=== PATIENT | female | born 1940 | race Caucasian/White ===

== ENCOUNTER → 2018-07-26 16:34 | Outpatient (CLI) | payer MEDICARE, SELFPAY ==
--- NOTE | 2018-07-26 | NVE_ITS ---
Venous Exam Indications: 729.5 Pain in limb. IMPRESSIONS 1. There is no evidence of significant Reflux. 2. No evidence of deep or superficial vein thrombosis involving the left lower extremity History: Left lower extremity pain. Swelling of the left lower extremity. Risk factors: Hypertension. Patient denies trauma. States her ankle and foot began swelling a few weeks ago. It seems to have gotten worse over time and is spreading up the leg. Left lower extremity venous duplex evaluation. Doppler flow study including spectral analysis, color and garner scale imaging. Location: Vascular laboratory. Patient status: Outpatient. Incidental findings: A Burnett's cyst is noted incidentally on the left. Tables: Venous flow and imaging: + +-------+ + Location Overall Flow properties + +-------+ + Left common femoral Patent Normal phasicity; spontaneous; normal augmentation; compressible + +-------+ + Left saphenofemoral junction Patent Compressible + +-------+ + Left profunda femoral Patent Compressible + +-------+ + Left femoral Patent Normal phasicity; spontaneous; normal augmentation; compressible + +-------+ + Left greater saphenous Patent Normal phasicity; spontaneous; normal augmentation; compressible + +-------+ + Left popliteal Patent Normal phasicity; spontaneous; normal augmentation; compressible + +-------+ + Left posterior tibial Patent Compressible + +-------+ + Left peroneal Patent Compressible + +-------+ + Left gastrocnemius Patent Compressible + +-------+ + Left soleal Patent Compressible + +-------+ + (Report amended ) Electronically signed by: Ha Hendrickson [id number]
== END ==
PROVIDERS: PCP Family Medicine; Visit Provider Family Medicine
DX: M79.605 Pain in left leg (principal)
CPT/HCPCS: 93971

== ENCOUNTER → 2018-08-17 12:51 | Outpatient (CLI) | payer MEDICARE, SELFPAY ==
--- NOTE | 2018-08-17 12:57 | XR_ITS ---
XR ankle LT min 3V HISTORY: Lateral ankle pain with swelling ITS.REASON: SWELLING OF LT FOOT ORDERING PHYSICIAN: Jensen Orellana MD PATIENT AGE: 78 years FINDINGS: No acute fracture or dislocation. No lytic or blastic change. There is mild soft tissue swelling along both medial and lateral aspect of the ankle greater along the lateral aspect. A small separate calcific density is present at the tip of the medial malleolus consistent with an old avulsion fracture. Prominent calcification is present along the plantar aponeurosis near the calcaneus and calcaneal spur and may reflect chronic plantar fasciitis. IMPRESSION: 1. Soft tissue swelling at the lateral malleolus region. 2. Old avulsion fracture of the medial malleolus. 3. Coarse calcification of the plantar aponeurosis posteriorly which may be seen with plantar fasciitis
--- NOTE | 2018-08-17 12:57 | XR_ITS ---
XR foot LT min 3V HISTORY: ITS.REASON: SWELLING OF LT FOOT ORDERING PHYSICIAN: Jensen Orellana MD PATIENT AGE: 78 years COMPARISON: None FINDINGS: There is moderate hallux valgus with osteoarthritis of the first metatarsophalangeal junction with bunion formation at the distal aspect of the first metatarsal. No fracture or dislocation. No lytic or blastic change. There are mild osteoarthritic changes of the tarsometatarsal junction dorsally. Coarse calcification is present along the posterior aspect of the plantar aponeurosis. IMPRESSION: 1. No acute fracture. 2. Hallux valgus with osteoarthritis and bunion formation of the first metatarsal. 3. Coarse calcification of the plantar aponeurosis posteriorly which may be related to chronic plantar fasciitis
== END ==
PROVIDERS: PCP Family Medicine; Visit Provider Family Medicine
DX: M25.472 Effusion, left ankle (principal)
CPT/HCPCS: 73610; 73630

== ENCOUNTER → 2023-03-18 08:57 | Outpatient (CLI) | payer MEDICARE, SELFPAY ==
--- NOTE | 2023-03-18 09:03 | XR_ITS ---
FINAL REPORT TECHNIQUE: Bone densitometry calculations of the lumbar spine and left hip were obtained. CLINICAL HISTORY: POST MENOPAUSAL FINDINGS: Using L1-4, the bone mineral density of the spine is 1.257 g/cm2, corresponding to T-score of 1.9. Using the left hip, the bone mineral density of the femoral neck is 0.814 g/cm2, corresponding to a T-score of -1.0. Using the right hip, the bone mineral density of the right neck is 0.760 g/cm2, corresponding to a T-score of -0.8. NOTE: T-score: Standard deviation compared with peak bone mass of young adult mean. *Following the recommendations of the International Society of Bone densitometry, classification of hip BMD is based on the lower of two T-scores; total hip or femoral neck. IMPRESSION: Normal bone mineral density of the lumbar spine and hip. FRAX was not reported because all T-scores are at or above-1.0. Reviewed, Interpreted and Dictated by Bobby Jones MD Transcribed by Yazmin Valadez Authenticated and [facility]
== END ==
PROVIDERS: PCP Family Medicine; Visit Provider Family Medicine
DX: Z78.0 Asymptomatic menopausal state (principal)
CPT/HCPCS: 77080

== ENCOUNTER → 2023-06-23 12:53 | Outpatient (CLI) | payer MEDICARE, SELFPAY ==
--- NOTE | 2023-06-23 13:08 | XR_ITS ---
FINAL REPORT CLINICAL HISTORY: LT HIP PAIN FINDINGS: 2 views of the left hip and an AP pelvis were obtained. There is no acute fracture or dislocation. There is mild degenerative change of both hips. There is moderate degenerative change in the visualized lower lumbar spine. There are no soft tissue abnormalities. IMPRESSION: Mild degenerative change. Reviewed, Interpreted and Dictated by Felipe Sigala III, MD Transcribed by Rodo Zamora Authenticated and [facility]
--- NOTE | 2023-06-23 13:08 | XR_ITS ---
FINAL REPORT CLINICAL HISTORY: LT HIP PAIN FINDINGS: 5 views were obtained. There is no acute fracture. There is 5 mm of anterolisthesis of L3 on L4. There is partial sacralization of L5 on the left. There are moderate and severe degenerative changes. There is multilevel facet arthropathy. Dextroscoliosis is noted. There is mild vascular calcification. IMPRESSION: Moderate and severe degenerative changes. Reviewed, Interpreted and Dictated by Felipe Sigala III, MD Transcribed by Rodo Zamora Authenticated and . [facility]
== END ==
PROVIDERS: PCP Family Medicine; Visit Provider Family Medicine
DX: M54.50 Low back pain, unspecified (principal); M25.552 Pain in left hip
CPT/HCPCS: 72110; 73502

== ENCOUNTER 2024-02-09 10:13 | Outpatient (CLI) | payer MEDICARE, SELFPAY ==
--- NOTE | 2024-02-09 10:21 | XR_ITS ---
FINAL REPORT CLINICAL HISTORY: Rt Shoulder pain knot on shoulder that has gotten bigger COMPARISON: None FINDINGS: RIGHT SHOULDER Three views demonstrate no acute fracture or dislocation. The visualized joint spaces are normally aligned. There is a soft tissue mass superior to the acromioclavicular joint, measuring 6 x 3.2 cm in size. This may represent a large synovial cyst arising from the acromioclavicular joint. There is moderate degenerative change of the glenohumeral joint, as well as severe degenerative change of the acromioclavicular joint. IMPRESSION: Soft tissue mass superior to the acromioclavicular joint as described, may represent a large synovial cyst arising from a severely degenerated acromioclavicular joint. Moderate degenerative change of the glenohumeral joint. Reviewed, Interpreted and Dictated by Bobby Jones MD Transcribed by Jenny Sher Authenticated and [facility]
== END 2024-02-09 23:59 ==
LOC: RAD 10:14
PROVIDERS: PCP Family Medicine; Visit Provider Orthopaedic Surgery
DX: M25.511 Pain in right shoulder (principal)
CPT/HCPCS: 73030

== ENCOUNTER 2024-02-29 08:34 | Outpatient (CLI) | payer MEDICARE, SELFPAY ==
[2024-02-29 10:03] LABS: Alanine Aminotransferase 21 U/L (12-78); Albumin Level 3.7 g/dl (3.5-5.0); Albumin/Globulin Ratio 1.3 (1.1-1.8); Alkaline Phosphatase 74 U/L (38-126); Anion Gap 9.3 mEq/L (5-15); Aspartate Amino Transferase 28 U/L (14-36); Bilirubin,Total 0.9 mg/dl (0.2-1.3); Blood Urea Nitrogen 21 mg/dl (7-17); Calcium 9.4 mg/dl (8.4-10.2); Carbon Dioxide 28 mmol/L (22.0-30.0); Chloride 107 mmol/L (98-107); Chol/HDL Ratio 1.9 (1-3.5); Cholesterol 122 mg/dl (140-200); Estimated Glomerular Filt Rate 69 ml/min (>60); GFR (African American) 83 ML/MIN (>60); Globulin 2.8 g/dL (1.3-3.2); Glucose 101 mg/dl (74-100); HDL Cholesterol 63 mg/dl (40-60); Potassium 4.3 mmoL/L (3.5-5.1); Sodium 140 mmol/L (136-145); Total Protein,Serum 6.5 g/dl (6.3-8.2); Triglycerides 64 mg/dl (30-150); VLDL Cholesterol 13 mg/dL (0-40)
[2024-02-29 10:15] LABS: Direct LDL Cholesterol 54.76 mg/dL (100-129)
== END 2024-02-29 23:59 | disposition home or self-care (01) ==
PROVIDERS: PCP Family Medicine; Visit Provider Family Medicine
DX: I10 Essential (primary) hypertension (principal); E78.5 Hyperlipidemia, unspecified
CPT/HCPCS: 36415; 80053; 80061

== ENCOUNTER 2024-03-02 08:39 | Outpatient (CLI) | payer MEDICARE, SELFPAY ==
--- NOTE | 2024-03-02 08:40 | MR_ITS ---
FINAL REPORT TECHNIQUE: Multiplanar MR imaging from the fourth before and after the administration of intravenous contrast through the right shoulder CLINICAL HISTORY: Rt Shoulder Pain COMPARISON: None FINDINGS: MRI RIGHT SHOULDER WITH AND WITHOUT CONTRAST: There is a complete tear of the distal supraspinatus tendon, with 4.2 cm of retraction of that tendon. The subscapularis tendon appears intact. There is a large fluid signal collection superior to the acromioclavicular joint, that measures 3.6 x 2.1 cm in size. There is also moderate hypertrophic change of the acromioclavicular joint. The biceps tendon is unremarkable in appearance. There is superior subluxation of the humeral head and moderate changes of osteoarthritis in the glenohumeral joint. There are multiple degenerative cysts present in the greater trochanter. No definite labral tear is seen. There is a large amount of fluid in the glenohumeral joint, after intravenous contrast administration there is enhancement of the joint capsule and synovium, and peripheral margins of the various fluid collections there is enhancement as well. This may represent a prominent inflammatory arthritis, although infection cannot be excluded. IMPRESSION: Complete tear supraspinatus tendon with retraction as described. Large fluid signal focus 3.6 x 2.1 cm, superior to the acromioclavicular joint, that likely represents a large synovial cyst. There are moderate changes of osteoarthritis in the glenohumeral joint. There is fluid within the shoulder joint, and there is enhancement after contrast administration of the joint capsules and synovium and at the peripheral margins of the previously mentioned fluid collections. This may represent inflammatory change or an inflammatory arthritis, although infection is not excluded. Fluid or tissue sampling might be helpful to evaluate for infection. Reviewed, Interpreted and Dictated by Bobby Jones MD Transcribed by Jenny Sher Authenticated and [facility]
[2024-03-02] MEDS: SODIUM CHLORIDE 0.9% 10ML SYR (RAD ONLY) 10 ML IV (14:51)
[2024-03-02] MEDS: GADOTERIDOL INJ 17ML SYRINGE 14 ML IV (14:51)
== END 2024-03-02 23:59 | disposition home or self-care (01) ==
LOC: RAD 08:40
PROVIDERS: PCP Family Medicine; Visit Provider Orthopaedic Surgery
DX: M25.511 Pain in right shoulder (principal)
CPT/HCPCS: 73223; A9576

== ENCOUNTER 2025-05-03 08:23 | Outpatient (CLI) | payer MEDICARE, SELFPAY ==
--- OUTSIDE RECORDS SUMMARY | 2024-10-04 05:30 | XMS_ITS ---
[facility] [address] [facility] [address] [place] [id number] Care Team Providers Care Hepatologist Name Role Phone Minor Orellana Primary Care Provider [phone] Allergies No Known Allergies REASON FOR VISIT BP check and [employer] Annual Wellness Visit Medications Medication SIG (Take, Route, Frequency, Duration) Notes Start Date End Date Status Cranberry 500 MG as directed Orally Active Vitamin B-1 250 MG as directed Orally Active Carvedilol 12.5 MG TAKE 1 TABLET TWICE DAILY for 90 Active Zinc 50 MG 1 tablet Orally Once a day for 30 day(s) Active Vitamin C 500 MG as directed Orally Active Vitamin B6 100 MG 1 tablet Orally Once a day for 30 day(s) Active Magnesium 250 MG 1 tablet with a meal Orally Once a day for 30 day(s) Active One A Day Women 50 Plus - as directed Orally Active amLODIPine Besylate 5 MG 1 tab(s) orally once a day for 90 days Active Atorvastatin Calcium 40 MG 1 tab(s) orally once a day (at bedtime) for 90 days Active Multivitamin 1 TAB(S) ONCE A DAY *Please review and pick correct strength-formulatio n from [employer] options. If intended option is not shown, discontinue and re-order from Quick Search* Active Lisinopril 20 MG 1 tab(s) orally twice a day for 90 days Active Vitamin D3 125 MCG (5000 UT) 1 capsule Orally Once a day for 30 day(s) Active Aspirin 81 MG 1 TAB(S) P.O. ONCE A DAY *Please review and pick correct strength-formulatio n from [employer] options. If intended option is not shown, discontinue and re-order from Quick Search* Active Problems Problem Type SNOMED Code ICD Code Onset Dates Problem Status W/U Status Risk Notes Problem [id number] Primary osteoarthritis of left knee (M17.12) Active confirmed Problem Carpal tunnel syndrome (G56.00) Active confirmed Vital Signs Blood pressure systolic 140 mm Hg 10/04/20 24 Blood pressure diastolic 84 mm Hg 024 Heart Rate 73 /min 10/04/2024 Height 63.50 in 10/04/2024 Weight 154.4 lbs 10/04/2024 BMI 26.92 kg/m2 10/04/2024 Encounters Encounter Location Date Provider Diagnosis [facility] [address] [facility] [address] [place], [place] [id number] 10/04/2024 Minor Orellana Adult general medica l examination Z00.00 ; Dyslipidemia E78.5 ; Essential hypertension I10 ; Primary generalized (osteo)arthritis M15.0 ; Primary osteoarthritis of left knee M17.12 ; Carpal tunnel syndrome G56.00 and Body mass index [BMI] 26.0-26.9, adult Z68.26 Assessments Encounter Date Diagnosis (ICD Code) Assessment Notes Treatment Notes Treatment Clinical Notes Section Notes 10/04/2024 Adult general medical examination (ICD-10 - Z00.00) Patient instructed to return to office Annually for Annual Wellness Visits to include annual screenings of Pain assessment, Functional Ability assessment, Cognitive Ability assessment, Fall Risk assessment, Depression screening and Bladder control screening. 10/04/2024 Dyslipidemia (ICD-10 - E78.5) 10/04/2024 Essential hypertension (ICD-10 - I10) 10/04/2024 Primary generalized (osteo)arthritis (ICD-10 - M15.0) 10/04/2024 Primary osteoarthritis of left knee (ICD-10 - M17.12) 10/04/2024 Carpal tunnel syndrome (ICD-10 - G56.00) 10/04/2024 Body mass index [BMI] 26.0-26.9, adult (ICD-10 - Z68.26) Plan Of Treatment Medication Medication Name Sig Start Date Stop Date Notes Carvedilol 12.5 MG TAKE 1 TABLET TWICE DAILY for 90 amLODIPine Besylate 5 MG 1 tab(s) orally once a day for 90 days Atorvastatin Calcium 40 MG 1 tab(s) oral ly once a day (at bedtime) for 90 days Lisinopril 20 MG 1 tab(s) orally twic e a day for 90 days Treatment Notes Assessment Notes Adult general medical examination Patien t instructed to return to office Annually for Annual Wellness Visits to include annual screenings of Pain assessment, Functional Ability assessment, Cognitive Ability assessment, Fall Risk assessment, Depression screening and Bladder control screening. Next Appt Details Follow Up: 6 Months, Reason: Progress Notes * MIKE POLLACKOB:1940 ([age] yo F)Acc No.[id number]:10/04/2024 Annual Wellness Visit Patient: AARON VARELA Provider: Minor Orellana M.D. :1940 A ge:84 Y S ex:Female Date:10/04/2024 Address:[address] [place] [address] Subjective: * Chief Complaints: * 1 . BP check and [employer] Annual Wellness Visit. * HPI: H PI: Patient is here today for a scheduled check up, a [employer] Medicare Annual Wellness Visit with PAF form completion. See PAF form scanned to chart. Pt is not fasting today. Pt declines any immunizations today. K nee/Ga: She presents with complaints of intermittent pain and stiffness in the left knee that is usually worse after she has been sitting for long periods of time. She recalls no specific injury. She has had no acute swelling. Denies locking or catching. Pain and stiffness usually improves after she gets up and moves around. W rist/Hand: c/o tingling numbness P t sts that in the evenings she sometimes has a tingling sensation in the fingers on her left hand. Denies weakness of her rehabilitation services director.? She has splints she sometimes wears at night which seem to help.. C ardiology: She feels like her blood pressure has been fluctuating more than it should.. Pt sts that she has been keeping a written log of readings and brings in a diary which is reviewed today. Her lowest systolic reading is 108 and the highest systolic reading is 154. Pt sts that she has an automated wrist and arm cuff at home and usually uses the wrist cuff. Pt sts that she does not take her BP medications unless she feels that she needs to because her BP will get too low and causes her to feel bad. Pt does need refills today. 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 n o H romel. G ASTROENTEROLOGY: no N ausea. n o V omiting. n o D iarrhea.? U ROLOGY: no D ifficulty urinating. n o B lood in urine. * Medical History: H ypertension, Hyperlipidemia, Osteoarthritis. * Surgical History: n ose correction , knee replacement, right knee 08/02/13, L2-L4 laminectomy February 10, 2017. * Hospitalization/Major Diagno stic Procedure: [facility]- Complete Knee Replacement 08/02/13. * Family History: F ather: , cancer, coronary artery disease. M other: , bone cancer. 2 son(s) , 1 daughter(s) . . * Social History: C URRENT TOBACCO USE S moking Status: Patient does NOT smoke. C affeine: yes, frequency:. Marital Status: . Past smoking status: no. Alcohol: No. * Medications: T aking Vitamin B6 100 MG Tablet 1 tablet Orally Once a day , Taking Magnesium 250 MG Tablet 1 tablet with a meal Orally Once a day , Taking One A Day Women 50 Plus - Tablet Chewable as directed Orally , Taking Cranberry 500 MG Capsule as directed Orally , Taking Vitamin B-1 250 MG Tablet as directed Orally , Taking Zinc 50 MG Tablet 1 tablet Orally Once a day , Taking Vitamin C 500 MG Capsule as directed Orally , Taking Vitamin D3 125 MCG (5000 UT) Capsule 1 capsule Orally Once a day , Taking Aspirin 81 MG 1 TAB(S) P.O. ONCE A DAY , Notes to Pharmacist: *Please review and pick correct strength-formulation from [employer] options. If intended option is not shown, discontinue and re-order from Quick Search*, Taking Multivitamin 1 TAB(S) ONCE A DAY , Notes to Pharmacist: *Please review and pick correct strength-formulation from [employer] options. If intended option is not shown, discontinue and re-order from Quick Search*, Taking Lisinopril 20 MG Tablet 1 tab(s) orally twice a day , Taking amLODIPine Besylate 5 MG Tablet 1 tab(s) orally once a day , Taking Atorvastatin Calcium 40 MG Tablet 1 tab(s) orally once a day (at bedtime) , Taking Carvedilol 12.5 MG Tablet TAKE 1 TABLET TWICE DAILY , Medication List reviewed and reconciled with the patient * Allergies: N .K.D.A. Objective: * Vitals: W t:154.4, Temp:97.6, BP:140/84, HR:73, O2 Sat:96% on RA, Nurse:NADIA, Ht: 63.50, BMI:26.92. * Examination: G eneral Examination: General Appearance: N AD. HEENT: u nremarkable. Oral cavity: n o lesions, mucosa moist and WNL, no erythema. Neck: s upple, no lymphadenopathy. Chest: n ormal shape and expansion. Heart: R SR. Lungs: c lear to auscultation. Abdomen: soft and nontender. Extremities: n o leg edema or calf tenderness. Left knee shows no acute joint swelling, redness, or warmth. There is some tenderness in the popliteal space and questionable Burnett's cyst.. * Physical Examination: G ENERAL: Pain Assessment: P ain level: 1, on a scale of 0-10 (with 10 being extreme pain). F unctional Status Assessment: P atient response to question of how often physical health interferes with daily activities: . Almost never Able to perform ADLs-including meal preparation, grocery shopping, housework, laundry, taking medications or handling finances. Cognitive Status: alert and oriented. Ambulation Status: Fully ambulatory . F all Risk Assessment: I ndependant in ambulation, adequate lighting in home. Patient has NOT fallen or had trouble walking within the past 12 months. D epression Screening: D enies depressed mood or anxiety. Describes emotional health as: positive. B ladder Control Screening: D enies problems. Assessment: * Assessment: 1. A dult general medical examination - Z00.00 (Primary) 2 . D yslipidemia - E78.5 3 . E ssential hypertension - I10 4 . P rimary generalized (osteo)arthritis - M15.0 5 . P rimary osteoarthritis of left knee - M17.12 6 . C arpal tunnel syndrome - G56.00 7 . B liam mass index [BMI] 26.0-26.9, adult - Z68.26 Plan: * Treatment: 2. D yslipidemia Refill Atorvastatin Calcium Tablet, 40 MG, 1 tab(s), orally, once a day (at bedtime), 90 days, 90, Refills 1. 3. E ssential hypertension Refill Lisinopril Tablet, 20 MG, 1 tab(s), orally, twice a day, 90 days, 180 Tablet, Refills 1;?Refill amLODIPine Besylate Tablet, 5 MG, 1 tab(s), orally, once a day, 90 days, 90 Tablet, Refills 1; R efill Carvedilol Tablet, 12.5 MG, TAKE 1 TABLET TWICE DAILY, 90, 180 Tablet, Refills 1.? * Procedure Codes: G 0439 ANNUAL WELLNESS VST; PPS SUBSQT VST, 05031 PT-FOCUSED HLTH RISK ASSMT, G0444 ANNUAL DEPRESSION SCREENING 15 MIN, 1090F PRES/ABSN URINE INCON ASSESS, 3288F FALL RISK ASSESSMENT DOCD, 1170F FXNL STATUS ASSESSED, 1159F MED LIST DOCD IN RCRD, 1003F LEVEL OF ACTIVITY ASSESS, 1036F TOBACCO NON-USER, 1125F AMNT PAIN NOTED PAIN PRSNT, G8510 NEG SCR Depression PT NOT ELIG F/U/PLN DOC, 3077F SYST BP = 140 MM HG6 IT, 3079F DIAST BP 80-89 MM HG, G8950 PREHTN/HTN BP DOC INDCD F/U DOC * Preventive Medicine: Counseling: E motional health: D iscussed ways to improve socialization. B ladder control: M ethods of controlling or managing leakage of urine discussed. E xercise: Patient advised to start, increase or maintain level of exercise/physical activity. I njury prevention: F all prevention discussed. Discussed need for cane/walker. Potential trip hazards discussed. Immunizations: P neumococcal r ecommended. I nfluenza r ecommended seasonally. Screening / Special Tests: M ammogram R ecent history:09/23/2024, negative.?Colonoscopy R ecent history:, excluded due to age. B one mineral Density R ecent history:03/18/2023, normal. * Follow Up: 6 Months * Billing Information: * Visit Code: 65158 Office Visit, Est Pt., Level 3. Modifiers: 25 * Procedure Codes: G0439 ANNUAL WELLNESS VST; PPS SUBSQT VST. 44004 PT-FOCUSED HLTH RISK ASSMT. G0444 ANNUAL DEPRESSION SCREENING 15 MIN. 1090F PRES/ABSN URINE INCON ASSESS. 3288F FALL RISK ASSESSMENT DOCD. 1170F FXNL STATUS ASSESSED. 1159F MED LIST DOCD IN RCRD. 1003F LEVEL OF ACTIVITY ASSESS. 1036F TOBACCO NON-USER. 1125F AMNT PAIN NOTED PAIN PRSNT. G8510 NEG SCR Depression PT NOT ELIG F/U/PLN DOC. 3077F SYST BP = 140 MM HG6 IT. 3079F DIAST BP 80-89 MM HG. G8950 PREHTN/HTN BP DOC INDCD F/U DOC. * Electronic signature of Minor Orellana MD on 05/03/2025 at 08:27 AM EDT Sign off status: Pending * Provider: Minor Orellana M.D. Date: 1 12/04/2023 Generated for Abimael arroyo/Hyacinth/eTransmitting on: 0 05/03/2025 08:27 AM EDT History and Physical Notes * HPI (History of Present Illness) Category Sub-Category Detail Notes Category Not es Wrist/Hand tingling numbness Pt sts that in the evenings she sometimes has a tingling sensation in the fingers on her left hand. Denies weakness of her rehabilitation services director. She has splints she sometimes wears at night which seem to help. HPI Patient is here today for a sche duled check up, a [employer] Annual Wellness Visit with PAF form completion. See PAF form scanned to chart. Pt is not fasting today. Pt declines any immunizations today Physical Examination Category Sub-Category Detail Notes Section Note s GENERAL Pain Assessment: Pain level: 1, on a scale of 0-10 (with 10 being extreme pain) Functional Status Assessment: Patient response to question of how often physical health interferes with daily activities: . Almost never Able to perform ADLs-including meal preparation, grocery shopping, housework, laundry, taking medications or handling finances. Cognitive Status: alert and oriented. Ambulation Status: Fully ambulatory Fall Risk Assessment: Independant in amb ulation, adequate lighting in home. Patient has NOT fallen or had trouble walking within the past 12 months Depression Screening: Denies depressed m ood or anxiety. Describes emotional health as: positive Bladder Control Screening: Denies proble ms Examination Category Sub-Category Detail Notes Category Not es General Examination HEENT: unremarkable Heart: RSR Lungs: clear to auscultatio n Abdomen: soft and nontender Extremities: no leg edema or calf tenderness. Left knee shows no acute joint swelling, redness, or warmth. There is some tenderness in the popliteal space and questionable Burnett's cyst. General Appearance: NAD Neck: supple, no lymphaden opathy Oral cavity: no lesions, mucosa m oist and WNL, no erythema Back: Chest: normal shape and exp ansion
--- OUTSIDE RECORDS SUMMARY | 2024-11-01 07:45 | XMS_ITS ---
Author Organization [facility] Address [address] [place] [id number] Care Team Providers Care Material Damage Appraiser Name Role Phone Minor Orellana Primary Care Provider Allergies No Known Allergies REASON FOR VISIT SHOULDER PAIN AND LEFT LEG Medications Medication SIG (Take, Route, Frequency, Duration) Notes Start Date End Date Status Carvedilol 12.5 MG TAKE 1 TABLET TWICE DAILY for 90 Active Atorvastatin Calcium 40 MG 1 tab(s) orally once a day (at bedtime) for 90 days Active Celecoxib 200 MG 1 capsule with food Orally Once a day prn joint pain 11/01/2024 Active amLODIPine Besylate 5 MG 1 tab(s) orally once a day for 90 days Active Lisinopril 20 MG 1 tab(s) orally twice a day for 90 days Active Vitamin C 500 MG as directed Orally Active Zinc 50 MG 1 tablet Orally Once a day for 30 day(s) Active Vitamin D3 125 MCG (5000 UT) 1 capsule Orally Once a day for 30 day(s) Active Multivitamin 1 TAB(S) ONCE A DAY *Please review and pick correct strength-formulatio n from [employer] options. If intended option is not shown, discontinue and re-order from Quick Search* Active Aspirin 81 MG 1 TAB(S) P.O. ONCE A DAY *Please review and pick correct strength-formulatio n from [employer] options. If intended option is not shown, discontinue and re-order from Quick Search* Active Vitamin B-1 250 MG as directed Orally Active Cranberry 500 MG as directed Orally Active One A Day Women 50 Plus - as directed Orally Active Magnesium 250 MG 1 tablet with a meal Orally Once a day for 30 day(s) Active Vitamin B6 100 MG 1 tablet Orally Once a day for 30 day(s) Active Problems Problem Type SNOMED Code ICD Code Onset Dates Problem Status W/U Status Risk Notes Problem [id number] Tear of right rotator cuff, unspecified tear extent, unspecified whether traumatic (M75.101) Active confirmed Vital Signs Blood pressure systolic 136 mm Hg 11/01/20 24 Blood pressure diastolic 88 mm Hg 024 Heart Rate 75 /min 11/01/2024 Height 63.50 in 11/01/2024 Weight 155 lbs 11/01/2024 BMI 27.02 kg/m2 11/01/2024 Encounters Encounter Location Date Provider Diagnosis [facility] [address] [facility] [address] [place], [place] [address] [phone] 11/01/2024 Minor Orellana Tear of right rotato [...] Appt Details Follow Up: 4 Weeks, prn, [place] son: Progress Notes * BOB POLLACKHIENOB:1940 ([age] yo F)Acc No.[id number]:11/01/2024 Progress Notes Patient: AARON VARELA Provider: Minor Orellana M.D. :1940 A ge:84 Y S ex:Female Date:11/01/2024 Address:[address] [place] [address] [facility] [place] [id number] Subjective: * Chief Complaints: * 1 . [...] 10, 2017. * Hospitalization/Major Diagno stic Procedure: [facility]- Complete Knee Replacement 08/02/13. * [...] * Follow Up: 4 Weeks, prn * Billing Information: * Visit Code: 78878 Office Visit, Est Pt., Level 3. * Procedure Codes: G2211 Complex e/m visit add on. * Electronic signature of Minor Orellana MD on 05/03/2025 at 08:28 AM EDT Sign off status: Pending * Provider: Minor Orellana M.D. Date: 01/02/2024 Generated for Abimael arroyo/Hyacinth/eTransmitting on: 0 05/03/2025 08:28 AM EDT History and Physical Notes * [...]
--- OUTSIDE RECORDS SUMMARY | 2025-05-02 06:45 | XMS_ITS ---
Author Organization [facility] Address [address] [facility] [address] [place] [id number] Care Team Providers Care Evening Anchor Name Role Phone Minor Orellana Primary Care Provider Allergies No Known Allergies REASON FOR VISIT 6 months, Needs labs Medications Medication SIG (Take, Route, Frequency, Duration) Notes Start Date End Date Status Aspirin 81 MG 1 TAB(S) P.O. ONCE A DAY *Please review and pick correct strength-formulatio n from [employer] options. If intended option is not shown, discontinue and re-order from Quick Search* Active Multivitamin 1 TAB(S) ONCE A DAY *Please review and pick correct strength-formulatio n from [employer] options. If intended option is not shown, discontinue and re-order from Quick Search* Active Carvedilol 12.5 MG TAKE 1 TABLET TWICE DAILY for 90 days Active Celecoxib 200 MG 1 capsule with food Orally Once a day prn joint pain Active Lisinopril 20 MG 1 tab(s) orally twice a day for 90 days Active Vitamin D3 125 MCG (5000 UT) 1 capsule Orally Once a day for 30 day(s) Active Cranberry 500 MG as [...] a day for 30 day(s) Active Vitamin B-12 1000 MCG 1 tablet Orally Once a day Active Carvedilol 12.5 MG TAKE 1 TABLET TWICE DAILY for 90 Active One A Day Women 50 Plus - as directed Orally Active amLODIPine Besylate 5 MG 1 tab(s) orally once a day for 90 days Active Atorvastatin Calcium 40 MG 1 tab(s) orally once a day (at bedtime) for 90 days Active Lisinopril 20 MG 1 tab(s) orally twice a day for 90 days Active Vital Signs Blood pressure systolic 142 mm Hg 05/02/20 25 Blood pressure diastolic 84 mm Hg 025 Heart Rate 72 /min 05/02/2025 Height 63.50 in 05/02/2025 Weight 152.0 lbs 05/02/2025 BMI 26.5 kg/m2 05/02/2025 Encounters Encounter Location Date Provider Diagnosis [facility] [address] [facility] [place] [id number] 05/02/2025 Minor Orellana Dyslipidemia E78.5 ; Essential hypertension I10 ; Primary generalized (osteo)arthritis M15.0 and Primary osteoarthritis of left knee M17.12 [...] twic e a day for 90 days Progress Notes * JAKIJAMILAWANDEROB:1940 ([age] yo F)Acc No.[id number]:05/02/2025 Progress Notes Patient: AARON VARELA Provider: Minor Orellana M.D. :1940 A ge:84 Y S ex:Female Date:05/02/2025 Address:[address] [place], [place] [address], [id number] Subjective: * Chief Complaints: * 1 . 6 months. 2. Needs labs. * HPI: C ardiology: The patient is here for a check up on Hypertension and Hyperlipidemia. Pt states she doing good except for some episodes of drops in her BP. Pt states she is not fasting. Denies : Chest Pain. D enies : [...] 10, 2017. * Hospitalization/Major Diagno stic [facility] 08[facility]02/13. * [...] *Please review and pick correct strength-formulation [facility]. If intended option is not shown, [...] on RA, Nurse: WENDI, Ht: 63.50, BMI:26.5. Assessment: * Assessment: 1. D yslipidemia - E78.5 2 . E ssential hypertension - I10 3 . P rimary generalized (osteo)arthritis - M15.0 4 . P rimary osteoarthritis of left knee - M17.12 Plan: * Treatment: 2. E ssential hypertension Refill Lisinopril Tablet, 20 MG, 1 tab(s), orally, twice a day, 90 days, 180 Tablet, Refills 1;?Refill amLODIPine Besylate Tablet, 5 MG, 1 tab(s), orally, once a day, 90 days, 90 Tablet, Refills 1; R efill Carvedilol Tablet, 12.5 MG, TAKE 1 TABLET TWICE DAILY, 90, 180 Tablet, Refills 1.? * Billing Information: * Visit Code: * Procedure Codes: * Electronic signature of Minor Orellana MD on 05/03/2025 at 08:28 AM EDT Sign off status: Pending * Provider: Minor Orellana M.D. Date: 05/02/2025 Generated for Abimael arroyo/Hyacinth/Iris on: 05/03/2025 08:28 AM EDT History and Physical Notes * HPI (History of Present Illness) Category Sub-Category Detail Notes Category Not es Cardiology Short of Breath Chest Pain Palpitations Dizziness
--- OUTSIDE RECORDS SUMMARY | 2025-05-03 08:28 | XMS_ITS ---
Author Organization Unknown Medications Date Medication Dosage DosageUnit StartDate StopDate StopReason Active DoseQuantity DoseUnit Dispense DispenseUnit Refills NdcCode DrugCode PharmacyId IsPrescription MappedMedication Srcstatus 11/01 00:00 :00 amLODIPine Besylate 5 MG Tablet 1 90 Tablet 1 [id number] 710 P Taking 10/04 00:00 :00 amLODIPine Besylate 5 MG Tablet 1 90 Tablet 1 19790154 710 P Unknown Status 10/04 00:00 :00 amLODIPine Besylate 5 MG Tablet 1 90 Tablet 1 [id number] 710 Taking 11/01 00:00 :00 Aspirin 81 MG 1 Jose F williamson 10/04 00:00 :00 Aspirin 81 MG 1 Jose F williamson 11/01 00:00 :00 Atorvastati n Calcium 40 MG Tablet 1 90 1 000 78057 810 P Taking 10/04 00:00 :00 Atorvastati n Calcium 40 MG Tablet 1 90 1 000 23815 810 P Unknown Status 10/04 00:00 :00 Atorvastati n Calcium 40 MG Tablet 1 90 1 000 09971 810 Taking 05/02 00:00 :00 Atorvastati n Calcium 40 MG Tablet 1 90 1 000 84141 810 Start 05/02 00:00 :00 Atorvastati n Calcium 40 MG Tablet 0 90 1 000 30660 810 Stop 03/29 00:00 :00 Carvedilol 12.5 MG Tablet 1 180 Tablet 0 24729192 405 Start 03/29 00:00 :00 Carvedilol 12.5 MG Tablet 0 180 Tablet 1 64442400 405 Stop 11/01 00:00 :00 Carvedilol 12.5 MG Tablet 1 180 Tablet 1 89217507 405 P Taking 10/04 00:00 :00 Carvedilol 12.5 MG Tablet 1 180 Tablet 1 26590658 405 P Unknown Status 10/04 00:00 :00 Carvedilol 12.5 MG Tablet 1 180 Tablet 1 33743331 405 Taking 05/02 00:00 :00 Carvedilol 12.5 MG Tablet 1 180 Tablet 1 65810551 405 Start 05/02 00:00 :00 Carvedilol 12.5 MG Tablet 0 60 Tablet 2 79982460 501 Stop 11/28 00:00 :00 Celecoxib 200 MG Capsule 1 30 0 92437 398 401 Start 11/28 00:00 :00 Celecoxib 200 MG Capsule 0 30 17675 398 401 Stop 11/01 00:00 :00 Celecoxib 200 MG Capsule 11/01/2024 00:00:00 1 30 1253758 8 401 P Start 11/01 00:00 :00 Cranberry 500 MG Capsule 1 72612 141 38 Taking 10/04 00:00 :00 Cranberry 500 MG Capsule 1 76949 141 38 Taking 03/29 00:00 :00 Lisinopril 20 MG Tablet 1 180 Tablet 0 45613866 801 Start 03/29 00:00 :00 Lisinopril 20 MG Tablet 0 180 Tablet 1 85174545 801 Stop 11/01 00:00 :00 Lisinopril 20 MG Tablet 1 180 Tablet 1 82336994 801 P Taking 10/04 00:00 :00 Lisinopril 20 MG Tablet 1 180 Tablet 1 05321853 801 P Unknown Status 10/04 00:00 :00 Lisinopril 20 MG Tablet 1 180 Tablet 1 99904054 801 Taking 11/01 00:00 :00 Magnesium 250 MG Tablet 1 30 040465 39 71 Taking 10/04 00:00 :00 Magnesium 250 MG Tablet 1 30 251832 39 71 Taking 11/01 00:00 :00 Multivitami n 1 Taking 10/04 00:00 :00 Multivitami n 1 Taking 11/01 00:00 :00 One A Day Women 50 Plus - Tablet Chewable 1 64489080 36 Taking 10/04 00:00 :00 One A Day Women 50 Plus - Tablet Chewable 1 10139872 36 Taking 11/01 00:00 :00 Vitamin B-1 250 MG Tablet 1 4329 2555 25 Taking 10/04 00:00 :00 Vitamin B-1 250 MG Tablet 1 4329 2555 25 Taking 11/01 00:00 :00 Vitamin B6 100 MG Tablet 1 30 53194 138 83 Taking 10/04 00:00 :00 Vitamin B6 100 MG Tablet 1 30 67294 138 83 Taking 11/01 00:00 :00 Vitamin C 500 MG Capsule 1 76782 002 509 Taking 10/04 00:00 :00 Vitamin C 500 MG Capsule 1 74861 002 509 Taking 11/01 00:00 :00 Vitamin D3 125 MCG (5000 UT) Capsule 1 30 27307470 980 Taking 10/04 00:00 :00 Vitamin D3 125 MCG (5000 UT) Capsule 1 30 43086060 980 Taking 11/01 00:00 :00 Zinc 50 MG Tablet 1 30 38049553 820 Taking 10/04 00:00 :00 Zinc 50 MG Tablet 1 30 18990151 820 Taking
--- OUTSIDE RECORDS SUMMARY | 2025-05-03 08:28 | XMS_ITS | Patient Health Record ---
[facility] [address] [place] [id number] Care Team Providers Care Inspector Wire Products Name Role Phone Minor Orellana Primary Care Provider Allergies No Known Allergies Results Component Value Reference Range Notes Mammogram Reviewed date:09/30/2024 04:25:26 PM Interpretation:Negative, annual f/u Performing Lab: Notes/Report: Negative, annual f/u result Negative, annual f/u Medications Medication SIG (Take, Route, Frequency, Duration) Notes Start Date End Date Status Vitamin B6 100 MG 1 tablet Orally Once a day for 30 day(s) Active Magnesium 250 MG 1 tablet with a meal Orally Once a day for 30 day(s) Active Vitamin D3 125 MCG (5000 UT) 1 capsule Orally Once a day for 30 day(s) Active Aspirin 81 MG 1 TAB(S) P.O. ONCE A DAY *Please review and pick correct strength-formulatio n from [employer] options. If intended option is not shown, discontinue and re-order from Quick Search* Active Multivitamin 1 TAB(S) ONCE A DAY *Please review and pick correct strength-formulatio n from [employer] options. If intended option is not shown, discontinue and re-order from Quick Search* Active Vitamin B-12 1000 MCG 1 tablet Orally Once a day Active amLODIPine Besylate 5 MG 1 tab(s) orally once a day for 90 days Active Cranberry 500 MG as directed Orally Active Carvedilol 12.5 MG TAKE 1 TABLET TWICE DAILY for 90 days Active Atorvastatin Calcium 40 MG 1 tab(s) orally once a day (at bedtime) for 90 days Active Vitamin B-1 250 MG as directed Orally Active Carvedilol 12.5 MG TAKE 1 TABLET TWICE DAILY for 90 Active Zinc 50 MG 1 tablet Orally Once a day for 30 day(s) Active Vitamin C 500 MG as directed Orally Active Celecoxib 200 MG 1 capsule with food Orally Once a day prn joint pain Active Lisinopril 20 MG 1 tab(s) orally twice a day for 90 days Active One A Day Women 50 Plus - as directed Orally Active Lisinopril 20 MG 1 tab(s) orally twice a day for 90 days Active Immunizations Vaccine Route Administration Date Status Comme nts Fluzone High Dose (65yr and older) IM Intramuscular 09/22/2013 Administered Fluzone High Dose (65yr and older) IM Intramuscular 08/12/2016 Administered Fluzone High Dose (65yr and older) IM Intramuscular 08/02/2019 Administered Fluzone High Dose (65yr and older) IM Intramuscular 07/27/2020 Administered Fluzone High Dose (65yr and older) IM Intramuscular 10/24/2022 Administered PNEUMOVAX 23 VACCINE IM Intramuscular 05/24/2019 Administe red Prevnar (PCV13) IM Intramuscular 09/22/2013 Administered Shingrix Unknown 08/23/2019 Administered Shingrix IM Intramuscular 10/18/2019 Administered xFluzone (6mos and older)-trivalent IM 09/09/2010 Administered Problems Problem Type SNOMED Code ICD Code Onset Dates Problem Status W/U Status Risk Notes Problem 54555515 Essential hypertension (I10) Active confirmed Problem Carpal tunnel syndrome (18289410) Carpal tunnel syndrome (G56.00) Active confirmed Problem Sciatica (10437208) Sciatic leg pain (M54.30) Active confirmed Problem 123523618 Primary generalized (osteo)arthritis (M15.0) Active confirmed Problem 524104116009625 Primary osteoarthritis of left knee (M17.12) Active confirmed Problem 694450290 Dyslipidemia (E78.5) Active confirmed Problem 57202632 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) Active confirmed Problem 36257792849484392 Tear of right rotator cuff, unspecified tear extent, unspecified whether traumatic (M75.101) Active confirmed Vital Signs Heart Rate 72 /min 05/02/2025 Blood pressure diastolic 84 mm Hg 05/02/2025 Height 63.50 in 05/02/2025 Blood pressure systolic 142 mm Hg 05/02/2025 Weight 152.0 lbs 05/02/2025 BMI 26.5 kg/m2 05/02/2025 Encounters Encounter Location Date Provider Diagnosis [facility] [address] [place] [address] [place] [id number] 10/04/2024 R Renaldo Orellana Adult general medica l examination Z00.00 ; Dyslipidemia E78.5 ; Essential hypertension I10 ; Primary generalized (osteo)arthritis M15.0 ; Primary osteoarthritis of left knee M17.12 ; Carpal tunnel syndrome G56.00 and Body mass index [BMI] 26.0-26.9, adult Z68.[address] [place] [address] [place] [id number] 11/01/2024 Renaldo Orellana Tear of right rotato r cuff, unspecified tear extent, unspecified whether traumatic M75.101 ; Right shoulder pain M25.511 and Primary osteoarthritis of left knee M17.[address] [place] [address] [place] [id number] 05/02/2025 Minor Orellana Dyslipidemia E78.5 ; Essential hypertension I10 ; Primary generalized (osteo)arthritis M15.0 and Primary osteoarthritis of left knee M17.12 [facility] [address] [place] [address] [place] [id number] 03/29/2025 Minor Orellana Assessments Encounter Date Diagnosis (ICD Code) Assessment Notes Treatment Notes Treatment Clinical Notes Section Notes 10/04/2024 Dyslipidemia (ICD-10 - E78.5) 10/04/2024 Adult general medical examination (ICD-10 - Z00.00) Patient instructed to return to office Annually for Annual Wellness Visits to include annual screenings of Pain assessment, Functional Ability assessment, Cognitive Ability assessment, Fall Risk assessment, Depression screening and Bladder control screening. 11/01/2024 Tear of right rotator cuff, unspecified tear extent, unspecified whether traumatic (ICD-10 - M75.101) 11/01/2024 Right shoulder pain (ICD-10 - M25.511) 05/02/2025 Dyslipidemia (ICD-10 - E78.5) 11/01/2024 Primary osteoarthritis of left knee (ICD-10 - M17.12) 05/02/2025 Essential hypertension (ICD-10 - I10) 10/04/2024 Essential hypertension (ICD-10 - I10) 10/04/2024 Primary generalized (osteo)arthritis (ICD-10 - M15.0) 05/02/2025 Primary generalized (osteo)arthritis (ICD-10 - M15.0) 05/02/2025 Primary osteoarthritis of left knee (ICD-10 - M17.12) 10/04/2024 Primary osteoarthritis of left knee (ICD-10 - M17.12) 10/04/2024 Carpal tunnel syndrome (ICD-10 - G56.00) 10/04/2024 Body mass index [BMI] 26.0-26.9, adult (ICD-10 - Z68.26) Plan Of Treatment No Information Insurance Providers Payer Name Payer Address Payer Phone Subscriber Number Group Number Insured Name Patient Relationship to Insured Coverage Start Date Coverage End Date [employer] [address] [address] [place] [address] [phone] [id number] ROSALEE POLLACK Self - patient is the insured Medications Administered Medication Instructions Date of Administration Dosage Notes Depo- Medrol 40 mg/ml 11/03/2006 1.5 mL Depo- Medrol 40 mg/ml 11/01/2021 1.5 mL Depo- Medrol 40 mg/ml 02/19/2023 1.5 mL Depo- Medrol 40 mg/ml 06/18/2023 1.5 mL Medical (General) History Medical History History ICD Code Hypertension hyperlipidemia osteoarthritis Surgical History Surgery Date(Month/Year) nose correction knee replacement, right knee 08/02/13 L2-L4 laminectomy February 10, 2017 Hospitalization History Reason Date(Month/Year) [facility]- Complete Knee Repla cement 08/02/13
[2025-05-03 09:23] LABS: Chloride 108 mmol/L (98-107)
[2025-05-03 09:24] LABS: Potassium 4.3 mmoL/L (3.5-5.1); Sodium 139 mmol/L (136-145)
[2025-05-03 09:26] LABS: Alanine Aminotransferase 19 U/L (12-78); Albumin/Globulin Ratio 1.3 (1.1-1.8); Alkaline Phosphatase 76 U/L (38-126); Anion Gap 8.3 mEq/L (5-15); Aspartate Amino Transferase 27 U/L (14-36); Bilirubin,Total 0.9 mg/dl (0.2-1.3); Blood Urea Nitrogen 24 mg/dl (7-17); Carbon Dioxide 27 mmol/L (22.0-30.0); Estimated Glomerular Filt Rate 68 ml/min (>60); GFR (African American) 83 ML/MIN (>60)
[2025-05-03 09:27] LABS: Calcium 9.1 mg/dl (8.4-10.2); Chol/HDL Ratio 2.6 (1-3.5); Cholesterol 126 mg/dl (140-200); Glucose 100 mg/dl (74-100); HDL Cholesterol 49 mg/dl (40-60); Triglycerides 66 mg/dl (30-150); VLDL Cholesterol 13 mg/dL (0-40)
[2025-05-03 09:38] LABS: Direct LDL Cholesterol 51.26 mg/dL (100-129)
== END 2025-05-03 23:59 | disposition home or self-care (01) ==
LOC: LAB 08:23
PROVIDERS: PCP Family Medicine; Visit Provider Family Medicine
DX: E78.5 Hyperlipidemia, unspecified (principal); I10 Essential (primary) hypertension
CPT/HCPCS: 36415; 80053; 80061

== ENCOUNTER 2025-05-26 09:15 | Outpatient (CLI) | payer MEDICARE, SELFPAY ==
--- OUTSIDE RECORDS SUMMARY | 2024-11-01 07:45 | XMS_ITS ---
Author Organization [facility] Address [address] [facility] [address] [place] [id number] Care Team Providers Care Business Unit Controller Name Role Phone Minor Orellana Primary Care Provider Allergies No Known Allergies REASON FOR VISIT SHOULDER PAIN AND LEFT LEG Medications Medication SIG (Take, Route, Frequency, Duration) Notes Start Date End Date Status Carvedilol 12.5 MG TAKE 1 TABLET TWICE DAILY; Duration: 90 Active Atorvastatin Calcium 40 MG 1 tab(s) orally once a day (at bedtime); Duration: 90 days Active Celecoxib 200 MG 1 capsule with food Orally Once a day prn joint pain 11/01/2024 Active amLODIPine Besylate 5 MG 1 tab(s) orally once a day; Duration: 90 days Active Lisinopril 20 MG 1 tab(s) orally twice a day; Duration: 90 days Active Vitamin C 500 MG as directed Orally Active Zinc 50 MG 1 tablet Orally Once a day; Duration: 30 day(s) Active Vitamin D3 125 MCG (5000 UT) 1 capsule Orally Once a day; Duration: 30 day(s) Active Multivitamin 1 TAB(S) ONCE A DAY *Please review and pick correct strength-formulatio n from [employer] options. If intended option is not shown, discontinue and re-order from Quick Search* Active Aspirin 81 MG 1 TAB(S) P.O. ONCE A DAY *Please review and pick correct strength-formulatio n from Medispan options. If intended option is not shown, discontinue and re-order from Quick Search* Active Vitamin B-1 250 MG as directed Orally Active Cranberry 500 MG as directed Orally Active One A Day Women 50 Plus - as directed Orally Active Magnesium 250 MG 1 tablet with a meal Orally Once a day; Duration: 30 day(s) Active Vitamin B6 100 MG 1 tablet Orally Once a day; Duration: 30 day(s) Active Problems Problem Type SNOMED Code ICD Code Onset Dates Problem Status W/U Status Risk Notes Problem Tear of right rotator cuff, unspecified tear extent, unspecified whether traumatic (M75.101) Active confirmed Vital Signs Blood pressure systolic 136 mm Hg 11/01/20 24 Blood pressure diastolic 88 mm Hg 024 Heart Rate 75 /min 11/01/2024 Height 63.50 in 11/01/2024 Weight 155 lbs 11/01/2024 BMI 27.02 kg/m2 11/01/2024 Encounters Encounter Location Date Provider Diagnosis [facility] [address] [facility] [address] [id number] 11/01/2024 Minor Orellana Tear of right rotato r cuff, unspecified tear extent, unspecified whether traumatic M75.101 ; Right shoulder pain M25.511 and Primary osteoarthritis of left knee M17.12 Assessments Encounter Date Diagnosis (ICD Code) Assessment Notes Treatment Notes Treatment Clinical Notes Section Notes 11/01/2024 Tear of right rotator cuff, unspecified tear extent, unspecified whether traumatic (ICD-10 - M75.101) 11/01/2024 Right shoulder pain (ICD-10 - M25.511) 11/01/2024 Primary osteoarthritis of left knee (ICD-10 - M17.12) Plan Of Treatment Medication Medication Name Sig Start Date Stop Date Notes Celecoxib 200 MG 1 capsule with food Orally Once a day prn joint pain 11/01/2024 Next Appt Details Follow Up: 4 Weeks, prn, [place] son: Progress Notes * JAMILA POLLACKEDOB:1940 ([age] yo F)Acc No.[id number]:11/01/2024 Progress Notes Patient: AARON VARELA Provider: Minor Orellana M.D. :1940 A ge:84 Y S ex:Female Date:11/01/2024 Address:[address] [place], [place] [id number] Subjective: * Chief Complaints: * 1 . SHOULDER PAIN AND LEFT LEG. * HPI: S houlder/Upper arm: She comes in with complaint of intermittent pain in her right shoulder. She is known to have an old rotator cuff tear by MRI earlier this year. She was not deemed a candidate for surgery. She has had very little limitation in activity related to the tear but does experience intermittent aching pain in the shoulder and deltoid area from time to time. Tylenol usually relieves the pain. K nee/Ga: She also complains of progressive pain in her left knee with no history of injury. She usually notes the pain after she has been sitting for a period of time and then stands to walk and it is located in the posterior knee. After taking a few steps the pain eases down. She denies locking or catching sensation. No swelling. 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 [...] 10, 2017. * Hospitalization/Major Diagno stic Procedure: [facility]- Complete Knee Replacement 08/02/13. * Family History: [...] *Please review and pick correct strength-formulation from Medispan options. If intended option is not shown, discontinue and re-order from Quick Search*, Taking Multivitamin 1 TAB(S) ONCE A DAY , Notes to Pharmacist: *Please review and pick correct strength-formulation from Medispan options. If intended option is not shown, [...] Allergies: N .K.D.A. Objective: * Vitals: W t:155, Temp:97.8, BP:136/88, HR:75, Nurse:NADIA, Ht: 63.50, BMI:27.02. * Examination: G eneral Examination: S he moves easily onto the exam table. Right shoulder shows no obvious deformity. No bony tenderness. She has nearly full range of motion with some limitation on internal rotation. Range of motion is painless. Left knee shows no acute joint swelling, redness, or warmth. Range of motion is slightly limited on terminal flexion. Moderate crepitus. Assessment: * Assessment: 1. T ear of right rotator cuff, unspecified tear extent, unspecified whether traumatic - M75.101 (Primary) 2 . R ight shoulder pain - M25.511 3 . P rimary osteoarthritis of left knee - M17.12 Plan: * Treatment: * Procedure Codes: G 2211 Complex e/m visit add on * Follow Up: 4 Weeks, prn * Images: Billing Information: * Visit Code: 03573 Office Visit, Est Pt., Level 3. * Procedure Codes: G2211 Complex e/m visit add on. * Electronic signature of Minor Orellana MD on 05/26/2025 at 09:17 AM EDT Sign off status: Pending * Provider: Minor Orellana M.D. Date: 01/02/2024 Generated for Abimael arroyo/Hyacinth/Ivanitting on: 0 05/26/2025 09:17 AM EDT History and Physical Notes * Examination Category Sub-Category Detail Notes Category Not es General Examination She moves easily onto the exam table. Right shoulder shows no obvious deformity. No bony tenderness. She has nearly full range of motion with some limitation on internal rotation. Range of motion is painless. Left knee shows no acute joint swelling, redness, or warmth. Range of motion is slightly limited on terminal flexion. Moderate crepitus.
--- OUTSIDE RECORDS SUMMARY | 2025-05-02 06:45 | XMS_ITS ---
Author Organization [facility] Address [address] [facility] [address] [place] [phone] Care Team Providers Care Tamping Machine Operator Road Forms Name Role Phone Minor Orellana Primary Care Provider [phone] Allergies No Known Allergies REASON FOR VISIT 6 months, Needs labs Medications Medication SIG (Take, Route, Frequency, Duration) Notes Start Date End Date Status Aspirin 81 MG 1 TAB(S) P.O. ONCE A DAY *Please review and pick correct strength-formulatio n from [employer] options. If intended option is not shown, discontinue and re-order from Quick Search* Active Multivitamin 1 TAB(S) ONCE A DAY *Please review and pick correct strength-formulatio n from [employer]ed options. If intended option is not shown, discontinue and re-order from Quick Search* Active Carvedilol 12.5 MG TAKE 1 TABLET TWICE DAILY; Duration: 90 days Active Celecoxib 200 MG 1 capsule with food Orally Once a day prn joint pain Active Lisinopril 20 MG 1 tab(s) orally twice a day; Duration: 90 days Active Vitamin D3 125 MCG (5000 UT) 1 capsule Orally Once a day; Duration: 30 day(s) Active Cranberry 500 MG as directed Orally Active Vitamin B-1 250 MG as directed Orally Active Zinc 50 MG 1 tablet Orally Once a day; Duration: 30 day(s) Active Vitamin C 500 MG as directed Orally Active Vitamin B6 100 MG 1 tablet Orally Once a day; Duration: 30 day(s) Active Magnesium 250 MG 1 tablet with a meal Orally Once a day; Duration: 30 day(s) Active Vitamin B-12 1000 MCG 1 tablet Orally Once a day Active Carvedilol 12.5 MG TAKE 1 TABLET TWICE DAILY; Duration: 90 Active One A Day Women 50 Plus - as directed Orally Active amLODIPine Besylate 5 MG 1 tab(s) orally once a day; Duration: 90 days Active Atorvastatin Calcium 40 MG 1 tab(s) orally once a day (at bedtime); Duration: 90 days Active Lisinopril 20 MG 1 tab(s) orally twice a day; Duration: 90 days Active Vital Signs Blood pressure systolic 142 mm Hg 05/02/20 25 Blood pressure diastolic 84 mm Hg 025 Heart Rate 72 /min 05/02/2025 Height 63.50 in 05/02/2025 Weight 152.0 lbs 05/02/2025 BMI 26.5 kg/m2 05/02/2025 Encounters Encounter Location Date Provider Diagnosis [facility] [address], [place] [phone] 05/02/2025 R Renaldo Orellana Dyslipidemia E78.5 ; Essential hypertension I10 ; Primary generalized (osteo)arthritis M15.0 ; Primary osteoarthritis of left knee M17.12 and BMI 26.0-26.9,adult Z68.26 Assessments Encounter Date Diagnosis (ICD Code) Assessment Notes Treatment Notes Treatment Clinical Notes Section Notes 05/02/2025 Dyslipidemia (ICD-10 - E78.5) 05/02/2025 Essential hypertension (ICD-10 - I10) 05/02/2025 Primary generalized (osteo)arthritis (ICD-10 - M15.0) 05/02/2025 Primary osteoarthritis of left knee (ICD-10 - M17.12) 05/02/2025 BMI 26.0-26.9,adult (ICD-10 - Z68.26) Plan Of Treatment Medication Medication Name Sig Start Date Stop Date Notes Carvedilol 12.5 MG TAKE 1 TABLET TWICE DAILY; Duration: 90 amLODIPine Besylate 5 MG 1 tab(s) orally once a day; Duration: 90 days Atorvastatin Calcium 40 MG 1 tab(s) oral ly once a day (at bedtime); Duration: 90 days Lisinopril 20 MG 1 tab(s) orally twic e a day; Duration: 90 days Pending Test Test Name Order Date H-Lipid Panel 05/02/2025 H-CMP 05/02/2025 Next Appt Details Follow Up: 6 Months, Reason: Progress Notes * MIKE POLLACKOB:1940 ([age] yo F)Acc No.[id number]:05/02/2025 Progress Notes Patient: AARON VARELA Provider: Minor Orellana M.D. :1940 A ge:84 Y S ex:Female Date:05/02/2025 Address:[address] [place] [address] [facility] Subjective: * Chief Complaints: * 1 . 6 months. 2. Needs labs. * HPI: C ardiology: The patient is here for a check up on Hypertension and Hyperlipidemia. Pt states she doing well but is concerned that some of her blood pressure readings are low. She brings in a diary over the past 2 weeks and the lowest systolic reading is 118. Denies : Chest Pain. D enies : Short of Breath. D enies : Dizziness. D enies : Palpitations. 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 [...] 10, 2017. * Hospitalization/Major Diagno stic Procedure: [facility]- Complete Knee Replacement 08/02/13. * Family History: F ather: , cancer, coronary artery disease. M other: , bone cancer. 2 son(s) , 1 daughter(s) . . * Social History: C URRENT TOBACCO USE S moking Status: Patient does NOT smoke. C affeine: yes, frequency:. Marital Status: . Past smoking status: no. Alcohol: No. * Medications: T aking Vitamin B-12 1000 MCG Tablet 1 tablet Orally Once a day , Taking Vitamin B6 100 MG Tablet 1 tablet [...] *Please review and pick correct strength-formulation from [employer] options. If intended option is not shown, discontinue and re-order from Quick Search*, Taking Multivitamin 1 TAB(S) ONCE A DAY , Notes to Pharmacist: *Please review and pick correct strength-formulation from [employer] options. If intended option is not shown, discontinue and re-order from Quick Search*, Taking amLODIPine Besylate 5 MG Tablet 1 tab(s) orally once a day , Taking Atorvastatin Calcium 40 MG Tablet 1 tab(s) orally once a day (at bedtime) , Taking Celecoxib 200 MG Capsule 1 capsule with food Orally Once a day prn joint pain , Taking Lisinopril 20 MG Tablet 1 tab(s) orally twice a day , Taking Carvedilol 12.5 MG Tablet TAKE 1 TABLET TWICE DAILY * Allergies: N .K.D.A. Objective: * Vitals: W t: 152.0, Temp: 98.0, BP: 142/84, HR: 72, O2 Sat: 99% on RA, Nurse: WENDI, Ht: 63.50, BMI:26.5. * Examination: G eneral Examination: General Appearance: N AD. H EENT: u nremarkable.?Oral cavity: n o lesions, mucosa moist and WNL, no erythema. N deidre: s upple, no lymphadenopathy. C hest: n ormal shape and expansion. H eart: R SR. L ungs: c lear to auscultation. A bdomen: soft and nontender. E xtremities: n o leg edema or calf tenderness. . Assessment: * Assessment: 1. E ssential hypertension - I10 (Primary) 2 . D yslipidemia - E78.5 ? 3 . P rimary generalized (osteo)arthritis - M15.0 4 . P rimary osteoarthritis of left knee - M17.12 5 . B W[place] 26.0-26.9,adult - Z68.26 ? Plan: * Treatment: 2. D yslipidemia Refill Atorvastatin Calcium Tablet, 40 MG, 1 tab(s), orally, once a day (at bedtime), 90 days, 90, Refills 1. * Labs: * L ab: H-Lipid Panel L ab: H-CMP * Procedure Codes: G 2211 Complex e/m visit add on, 1036F TOBACCO NON-USER, G8420 BMI<30 AND >=22 CALC & DOCU, G8950 PREHTN/HTN BP DOC INDCD F/U DOC, G8753 MOST RECENT SYSTOLIC BP >= 140MM HG, G8754 MOST RECENT DIASTOLIC BP < 90MM HG * Follow Up: 6 Months * Images: Billing Information: * Visit Code: 99143 Office Visit, Est Pt., Level 3. * Procedure Codes: G2211 Complex e/m visit add on. 1036F TOBACCO NON-USER. G8420 BMI<30 AND >=22 CALC & DOCU. G8950 PREHTN/HTN BP DOC INDCD F/U DOC. G8753 MOST RECENT SYSTOLIC BP >= 140MM HG. G8754 MOST RECENT DIASTOLIC BP < 90MM HG. * Electronic signature of Minor Orellana MD on 05/26/2025 at 09:16 AM EDT Sign off status: Pending * Provider: Minor Orellana M.D. Date: 0 05/02/2025 Generated for Abimael arroyo/Hyacinth/Ivanitting on: 0 05/26/2025 09:16 AM EDT History and Physical Notes * HPI (History of Present Illness) Category Sub-Category Detail Notes Category Not es Cardiology Short of Breath Chest Pain Palpitations Dizziness Examination Category Sub-Category Detail Notes Category Not es General Examination HEENT: unremarkable Heart: RSR Lungs: clear to auscultatio n Abdomen: soft and nontender Extremities: no leg edema or calf tenderness. General Appearance: NAD Neck: supple, no lymphaden opathy Oral cavity: no lesions, mucosa m oist and WNL, no erythema Back: Chest: normal shape and exp ansion
--- OUTSIDE RECORDS SUMMARY | 2025-05-09 06:13 | XMS_ITS ---
Author Organization [facility] Address [address] [facility] [address] [place] [id number] Care Team Providers Care Intelligence Applications Name Role Phone Minor Orellana Primary Care Provider REASON FOR VISIT due bone density Encounters Encounter Location Date Provider Diagnosis [facility] [address] [place] [id number] 05/09/2025 Minor Orellana Screening for osteoporosis Z13.820 Assessments Encounter Date Diagnosis (ICD Code) Assessment Notes Treatment Notes Treatment Clinical Notes Section Notes 05/09/2025 Screening for osteoporosis (ICD-10 - Z13.820) Plan Of Treatment Pending Test Test Name Order Date Bone density 05/09/2025 Progress Notes * MIKE BELLAMYOB:1940 ([age] yo F)Acc No.[id number]:05/09/2025 Patient: Micheline MAMADOUBOBROSALEE :1940 A ge:84 Y S ex:Female Address:[address] [place], [place] [address], [place] [address] Subjective: * Chief Complaints: * D ue bone density * Medical History: * Surgical History: * Hospitalization/Major Diagno stic Procedure: * Medications: Objective: * Vitals: * Physical Examination: Assessment: * Assessment: 1. S creening for osteoporosis - Z13.820 (Primary) Plan: * Treatment: * Procedure Codes: * true * Date: Generated for Printi ng/Faxing/eTransmitting on: 0 05/26/2025 09:17 AM EDT
--- NOTE | 2025-05-26 09:17 | XR_ITS ---
FINAL REPORT CLINICAL HISTORY: SCREENING COMPARISON: 03/18/2023 FINDINGS: Using L1-4, the bone mineral density of the spine is 1.334 g/cm2, corresponding to T-score of 2.6, within normal limits. Previously was 1.257 with a T-score of 1.9. Using the left hip, the bone mineral density of the total hip is 0.857 g/cm2, corresponding to a T-score of -0.7, within normal limits. Previously was 0.814 with a T-score of -1.0. Using the right hip, the bone mineral density of the femoral neck is 0.740 g/cm2, corresponding to a T-score of -1.0, within normal limits. Previously was 0.760 with a T-score of -0.8. FRAX not reported because all T-scores at or above -1.0 NOTE: T-score: Standard deviation compared with peak bone mass of young adult mean. *Following the recommendations of the International Society of Bone densitometry, classification of hip BMD is based on the lower of two T-scores; total hip or femoral neck. IMPRESSION: Normal bone mineral density of the lumbar spine and hips. Reviewed, Interpreted and Dictated by Charlene Rubio MD Transcribed by Marylin Hernandez Authenticated and [facility]
--- OUTSIDE RECORDS SUMMARY | 2025-05-26 09:18 | XMS_ITS | Patient Health Record ---
Author Organization [facility] Address [address] [facility] [address] [place] [id number] Care Team Providers Care Software Test Analyst Name Role Phone Minor Orellana Primary Care Provider Allergies No Known Allergies Results Component Value Reference Range Notes Mammogram Reviewed date:09/30/2024 04:25:26 PM Interpretation:Negative, annual f/u Performing Lab: Notes/Report: Negative, annual f/u result Negative, annual f/u H-Lipid Panel Reviewed date:05/09/2025 08:56:28 AM Interpretation:LDL 51 Performing Lab: Notes/Report: Patient Fasting? Y TRIG 66 30-150 mg/dl CHOL 126 140-200 mg/dl DLDL 51.26 100-129 mg/dL VLDL 13 0-40 mg/dL HDL 49 40-60 mg/dl CHLHDL 2.6 1-3.5 H-CMP Reviewed date:05/09/2025 08:56:28 AM Interpretation:BUN 24 Performing Lab: Notes/Report: NA 139 136-145 mmol/L K 4.3 3.5-5.1 mmoL/L CL 108 98-107 mmol/L CO2 27 22.0-30.0 mmol/L GAP 8.3 5-15 mEq/L BUN 24 7-17 mg/dl CREATT 0.80 0.52-1.04 mg/dl GFRAA 83 >60 ML/MIN EGFR 68 >60 ml/min GLU 100 74-100 mg/dl CA 9.1 8.4-10.2 mg/dl BILIT 0.9 0.2-1.3 mg/dl AST 27 14-36 U/L ALT 19 12-78 U/L TP 7.0 6.3-8.2 g/dl ALB 4.0 3.5-5.0 g/dl GLOB 3.0 1.3-3.2 g/dL AGRATIO 1.3 1.1-1.8 ALP 76 38-126 U/L Medications Medication SIG (Take, Route, Frequency, Duration) Notes Start Date End Date Status Vitamin B6 100 MG 1 tablet Orally Once a day; Duration: 30 day(s) Active Magnesium 250 MG 1 tablet with a meal Orally Once a day; Duration: 30 day(s) Active Vitamin D3 125 MCG (5000 UT) 1 capsule Orally Once a day; Duration: 30 day(s) Active Aspirin 81 MG 1 TAB(S) P.O. ONCE A DAY *Please review and pick correct strength-formulatio n from [employer] options. If intended option is not shown, discontinue and re-order from Quick Search* Active Multivitamin 1 TAB(S) ONCE A DAY *Please review and pick correct strength-formulatio n from [employer] options. If intended option is not shown, discontinue and re-order from Quick Search* Active Vitamin B-12 1000 MCG 1 tablet Orally Once a day Active amLODIPine Besylate 5 MG 1 tab(s) orally once a day; Duration: 90 days Active Cranberry 500 MG as directed Orally Active Carvedilol 12.5 MG TAKE 1 TABLET TWICE DAILY; Duration: 90 days Active Atorvastatin Calcium 40 MG 1 tab(s) orally once a day (at bedtime); Duration: 90 days Active Vitamin B-1 250 MG as directed Orally Active Carvedilol 12.5 MG TAKE 1 TABLET TWICE DAILY; Duration: 90 Active Zinc 50 MG 1 tablet Orally Once a day; Duration: 30 day(s) Active Vitamin C 500 MG as directed Orally Active Celecoxib 200 MG 1 capsule with food Orally Once a day prn joint pain Active Lisinopril 20 MG 1 tab(s) orally twice a day; Duration: 90 days Active One A Day Women 50 Plus - as directed Orally Active Lisinopril 20 MG 1 tab(s) orally twice a day; Duration: 90 days Active Immunizations Vaccine Route Administration [...] Problem Status W/U Status Risk Notes Problem Essential hypertension (74916625) Essential hypertension (I10) Active confirmed Problem Carpal tunnel syndrome (90139364) Carpal tunnel syndrome (G56.00) Active confirmed Problem Sciatica (02543937) Sciatic leg pain (M54.30) Active confirmed Problem Primary generalised osteoarthritis (756473219) Primary generalized (osteo)arthritis (M15.0) Active confirmed Problem Osteoarthritis of knee (507891346) Primary osteoarthritis of left knee (M17.12) Active confirmed Problem Dyslipidemia (898332577) Dyslipidemia (E78.5) Active confirmed Problem Atopic dermatitis (19721332) 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) Active confirmed Problem Rupture of right rotator cuff (3229885050366628 3) Tear of right rotator cuff, unspecified tear extent, unspecified whether traumatic (M75.101) Active confirmed Vital Signs Heart Rate 72 /min 05/02/2025 Blood pressure diastolic 84 mm Hg 05/02/2025 Height 63.50 in 05/02/2025 Blood pressure systolic 142 mm Hg 05/02/2025 Weight 152.0 lbs 05/02/2025 BMI 26.5 kg/m2 05/02/2025 Encounters Encounter Location Date Provider Diagnosis [facility] [address] [facility] [address] [place] [id number] 10/04/2024 Minor Orellana Adult general medica l examination Z00.00 ; Dyslipidemia E78.5 ; Essential hypertension I10 ; Primary generalized (osteo)arthritis M15.0 ; Primary osteoarthritis of left knee M17.12 ; Carpal tunnel syndrome G56.00 and Body mass index [BMI] 26.0-26.9, adult Z68.26 [facility] [address] [facility] [address] [place] [id number] 11/01/2024 R Renaldo Esteban Tear of right rotato r cuff, unspecified tear extent, unspecified whether traumatic M75.101 ; Right shoulder pain M25.511 and Primary osteoarthritis of left knee M17.12 [facility] [address] [facility] [address] [place] [id number] 05/02/2025 R Renaldo Esteban Dyslipidemia E78.5 ; Essential hypertension I10 ; Primary generalized (osteo)arthritis M15.0 ; Primary osteoarthritis of left knee M17.12 and BMI 26.0-26.9,adult Z68.26 [facility] [address] [facility] [address] [place] [id number] 03/29/2025 R Renaldo Esteban [facility] [address] [place] [id number] 05/09/2025 R Renaldo Esteban [facility] [address] [place] [id number] 05/09/2025 R Renaldo Esteban Screening for osteoporosis Z13.820 Assessments Encounter Date [...] Depression screening and Bladder control screening. 11/01/2024 Right shoulder pain (ICD-10 - M25.511) 11/01/2024 Tear of right rotator cuff, unspecified tear extent, unspecified whether traumatic (ICD-10 - M75.101) 05/02/2025 Essential hypertension (ICD-10 - I10) 05/02/2025 Dyslipidemia (ICD-10 - E78.5) 05/09/2025 Screening for osteoporosis (ICD-10 - Z13.820) 05/02/2025 Primary generalized (osteo)arthritis (ICD-10 - M15.0) 11/01/2024 Primary osteoarthritis of left knee (ICD-10 - M17.12) 10/04/2024 Essential hypertension (ICD-10 - I10) 10/04/2024 Primary generalized (osteo)arthritis (ICD-10 - M15.0) 05/02/2025 Primary osteoarthritis of left knee (ICD-10 - M17.12) 10/04/2024 Primary osteoarthritis of left knee (ICD-10 - M17.12) 05/02/2025 BMI 26.0-26.9,adult (ICD-10 - Z68.26) 10/04/2024 Carpal tunnel syndrome (ICD-10 - G56.00) 10/04/2024 Body mass index [BMI] 26.0-26.9, adult (ICD-10 - Z68.26) Plan Of Treatment Pending Test Test Name Order Date Bone density 05/09/2025 H-Lipid Panel 05/02/2025 H-CMP 05/02/2025 Insurance Providers Payer Name Payer Address Payer Phone Subscriber Number Group Number Insured Name Patient Relationship to Insured Coverage Start Date Coverage End Date [employer] [address] [address] [place] [address] [phone] [id number] ROSALEE OPLLACK Self - patient is the insured Medications [...] February 10, 2017 Hospitalization History Reason Date(Month/Year) [facility]- Complete Knee Repla cement 08/02/13
== END 2025-05-26 23:59 | disposition home or self-care (01) ==
LOC: RAD 09:15
PROVIDERS: PCP Family Medicine; Visit Provider Family Medicine
DX: Z13.820 Encounter for screening for osteoporosis (principal); Z78.0 Asymptomatic menopausal state
CPT/HCPCS: 77080